=== PATIENT | female | born 1995 | race Caucasian/White ===

== ENCOUNTER 2019-01-25 15:42 | Emergency (ER) | payer OTHER ==
[~2019-01-25] VITALS: Ht 165.1 cm; Wt 56.7 kg
[2019-01-25 16:30] LABS: URINE BILIRUBIN NEGATIVE (Negative); URINE BLOOD NEGATIVE (Negative); URINE CLARITY CLEAR; URINE COLOR YELLOW; URINE GLUCOSE-RANDOM* NEGATIVE (Negative); URINE KETONES NEGATIVE (Negative); URINE LEUKOCYTES-REFLEX NEGATIVE (Negative); URINE NITRITE-REFLEX NEGATIVE (Negative); URINE PROTEIN (DIPSTICK) NEGATIVE (Negative); URINE UROBILINOGEN 0.2 E.U./dl (0.2-1.0)
[2019-01-25 17:25] LABS: ABSOLUTE NEUTROPHILS 4.4 thou/uL (1.4-8.2); BASOPHILS 0.2 % (0.0-2.0); EOSINOPHILS 0.1 % (0.0-3.0); HEMATOCRIT 39.8 % (37.0-47.0); HEMOGLOBIN 13.7 gm/dL (12.0-15.0); LYMPHOCYTES 19.9 % (24.0-44.0); MCHC 34.3 g/dL (28.0-37.0); MCV 87.4 fL (80.0-100.0); MONOCYTES 4.9 % (1.0-8.0); PLATELET COUNT 202 thou/uL (150-400); POLYS 74.9 % (36.0-66.0); RBC 4.56 mil/uL (4.20-5.00); RDW 12.9 % (10.5-14.5); WBC 5.9 thou/uL (4.0-11.0)
[2019-01-25 17:26] LABS: CALCIUM 9.5 mg/dL (8.5-10.1); CREATININE 0.7 mg/dL (0.6-1.0); MAGNESIUM 1.8 mg/dL (1.8-2.4); POTASSIUM 3.6 mmol/L (3.5-5.1)
[2019-01-25 19:21] LABS: ALBUMIN 4.7 g/dL (3.4-5.0); DIRECT BILIRUBIN 0.1 mg/dL (<0.1-0.3); TOTAL BILIRUBIN 0.4 mg/dL (<0.1-1.0); TOTAL PROTEIN 8.5 g/dL (6.4-8.2)
[2019-01-25] MEDS ORDERED: CLONAZEPAM 0.50.5 M1 PO (19:50)
[2019-01-25 19:57] VITALS: BP 133/79
== END 2019-01-25 19:58 | disposition home or self-care (01) ==
LOC: ER 15:42
PROVIDERS: Emergency Medicine; Physician Assistant
DX: F41.9 Anxiety disorder, unspecified (principal); F32.9 Major depressive disorder, single episode, unspecified; R10.84 Generalized abdominal pain; Z88.0 Allergy status to penicillin